=== PATIENT | female | born 1935 | race African-American/Black ===

== ENCOUNTER 2020-08-06 23:03 | Inpatient (IN) | payer MEDICARE, BC ==
[~2020-08-06] VITALS: Ht 180.3 cm; Wt 88.9 kg
[2020-08-06 23:11] VITALS: BP 126/70
[2020-08-06] MEDS ORDERED: AZATHIOPRINE5 GM MC (23:19)
[2020-08-06] MEDS ORDERED: ATORVASTATIN CA20 MG ORAL (23:19)
--- NOTE | 2020-08-06 23:20 | Emergency Room Report ---
History of Present Illness General Chief Complaint: Syncope Source: Patient, EMS Present Illness HPI Disclaimer: Please note that this report is being documented using DRAGON technology. This can lead to erroneous entry secondary to incorrect interpretation by the dictating instrument. HPI: 84-year-old female history of multiple sclerosis presents from [facility] facility for evaluation of syncopal episode. Patient was using the bathroom with attendant near her when she had a witnessed brief syncopal episode. It appears this occurred while the patient was getting up from a seated position. She quickly regained consciousness. There is no head injury; she was caught by the attendant. She was noted to be slightly hypotensive by EMS and was given 250 cc bolus. Blood pressures improved. Patient was complaining of lightheadedness but denied chest pain, palpitations, shortness of breath, headache, vertiginous symptoms, nausea, vomiting. Otherwise has been in her usual state of health. Eating and drinking at baseline. No changes in her medication reported. No prior history of syncope. PMH: Multiple sclerosis, hypertension, hyperlipidemia PSH: Reviewed Allergies: Enalapril, Social Hx: Denies drug or alcohol use Allergies: Coded Allergies: ENALAPRIL (Verified Allergy, Unknown, 08/06/20) Beebe (Verified Allergy, Unknown, 08/06/20) PAPAYA (Verified Allergy, Unknown, 08/06/20) Uncoded Allergies: OXYBUTIRIN (Allergy, Unknown, 08/06/20) COVID-19 Screening Contact w/high risk pt: No Experienced COVID-19 symptoms?: No COVID-19 Testing performed YARN COMBER: Yes COVID-19 Screening: Negative COVID-19 COVID-19 Testing Source: [facility] Nursing Documentation-PMH Hx Hypertension: Yes - mixed hyperlipidemia Hx Neurological Problems: Yes - MCI, OA Hx Cerebrovascular Accident: Yes - MS Review of Systems All Other Systems: negative except mentioned in HPI Physical Exam Vital Signs Date Time Temp Pulse Resp B/P (MAP) Pulse Ox O2 Delivery O2 Flow Rate FiO2 08/06/20 22:56 97.9 76 18 126/70 (88) 98 Room Air General: Awake and alert, no acute distress HEENT: NC/AT. EOMI. Cardiovascular: RRR. S1 and S2 normal. No murmur appreciated Resp: Normal work of breathing. No cough, wheezing or crackles appreciated Abdomen: Abdomen is soft, nondistended. Nontender Skin: Intact. No abrasions, laceration or rash over the exposed skin MSK: Normal tone and bulk. Moving all extremities. No obvious deformity. Neuro: Awake and alert. Mentating appropriately. Medical Decision Making Diagnostic Impression: Primary Impression: Syncope Additional Impression: Orthostatic hypotension ER Course Is an 84-year-old female with history of multiple sclerosis presenting for evaluation of syncopal episode while using the bathroom at [facility]. Differential includes not limited to vasovagal syncope, orthostatic hypotension, medication side effect from antihypertensives, arrhythmia, e lectrolyte abnormality, dehydration, ACS among others. Noted to be hypotensive by EMS on their arrival but improved with 250 cc bolus prior to arrival. She arrives with stable vital signs and complaints of mild lightheadedness. No reports of trauma and she has no external signs of trauma. She denies any other discomfort at this time. EKG shows sinus rhythm with normal intervals, no ischemic changes. No acute findings on chest x-ray. Labs have returned within normal limits. Orthostatic vital signs performed however the patient became lightheaded and nauseated while rising from a seated position indicating a positive finding. She will continue IV fluids and be admitted. Dr. Munguia is the assigned hospitalist for [facility] and has accepted the patient to his service. Will admit to telemetry. She is in stable condition. Laboratory Tests Test 08/06/20 23:05 08/06/20 23:10 08/06/20 23:15 Sodium Level 140 MMOL/L (136-145) Potassium Level 3.5 MMOL/L (3.5-5.1) Chloride Level 104 MMOL/L (98-107) Carbon Dioxide Level 24 MMOL/L (21-32) Anion Gap 12 mmol/L (5-15) Blood Urea Nitrogen 14 mg/dL (7-18) Creatinine 1.2 MG/DL (0.55-1.30) Estimated Glomerular Filtration Rate 52.1 mL/min (>60) Glucose Level 164 MG/DL (74-106) H Calcium Level 8.6 MG/DL (8.5-10.1) Total Bilirubin 0.6 MG/DL (0.2-1.0) Aspartate Amino Transferase (AST) 14 U/L (15-37) L Alanine Aminotransferase (ALT) 11 U/L (12-78) L Alkaline Phosphatase 96 U/L (46-116) Total Protein 6.5 G/DL (6.4-8.2) Albumin 3.5 G/DL (3.4-5.0) Globulin 3.0 g/dL Albumin/Globulin Ratio 1.2 (1.0-2.7) White Blood Count 14.6 K/UL (4.8-10.8) H Red Blood Count 4.35 M/UL (4.20-5.40) Hemoglobin 12.9 G/DL (12.0-16.0) Hematocrit 39.7 % (37.0-47.0) Mean Corpuscular Volume 91 FL (80-99) Mean Corpuscular Hemoglobin 29.6 PG (27.0-31.0) Mean Corpuscular Hemoglobin Concent 32.4 G/DL (32.0-36.0) Red Cell Distribution Width 13.1 % (11.6-14.8) Platelet Count 229 K/UL (150-450) Mean Platelet Volume 6.6 FL (6.5-10.1) Neutrophils (%) (Auto) 81.5 % (45.0-75.0) H Lymphocytes (%) (Auto) 9.7 % (20.0-45.0) L Monocytes (%) (Auto) 7.8 % (1.0-10.0) Eosinophils (%) (Auto) 0.4 % (0.0-3.0) Basophils (%) (Auto) 0.6 % (0.0-2.0) Phosphorus Level 3.8 MG/DL (2.5-4.9) Magnesium Level 2.0 MG/DL (1.8-2.4) Troponin I 0.000 ng/mL (0.000-0.056) EKG Diagnostic Results Troponin ordered: Yes When was troponin ordered?: Aug 06, 2020 EKG Time: 22:57 Rate: normal Rhythm: NSR ST Segments: no acute changes Other Impression Sinus rhythm, normal axis, normal intervals, QTC [address] segment changes. Rhythm Strip Diag. Results Rhythm Strip Time: 22:57 EP Interpretation: yes Rate: 70s Rhythm: NSR, no PVC's, no ectopy Chest X-Ray Diagnostic Results Chest X-Ray Diagnostic Results : Chest X-Ray Ordered: Yes # of Views/Limited/Complete: 1 View Indication: Other - Syncope EP Interpretation: Yes Interpretation: no consolidation, no effusion, no pneumothorax Impression: No acute disease Electronically Signed by: Electronically signed by Dr. Aristeo Horvath MD Last Vital Signs Date Time Temp Pulse Resp B/P (MAP) Pulse Ox O2 Delivery O2 Flow Rate FiO2 08/06/20 23:11 97.9 78 18 126/70 98 Room Air Disposition: ADMITTED INPATIENT Condition: Stable Aristeo Horvath MD Aug 06, 2020 23:20
[2020-08-06 23:30] LABS: BASOPHILS % (AUTO) 0.6 % (0.0-2.0); EOSINOPHILS % (AUTO) 0.4 % (0.0-3.0); HEMATOCRIT 39.7 % (37.0-47.0); HEMOGLOBIN 12.9 G/DL (12.0-16.0); LYMPHOCYTES % (AUTO) 9.7 % (20.0-45.0); MEAN CORPUSCULAR VOLUME 91 FL (80-99); MONOCYTES % (AUTO) 7.8 % (1.0-10.0); NEUTROPHILS % (AUTO) 81.5 % (45.0-75.0); PLATELET COUNT 229 K/UL (150-450); RED BLOOD COUNT 4.35 M/UL (4.20-5.40); RED CELL DISTRIBUTION WIDTH 13.1 % (11.6-14.8); WHITE BLOOD COUNT 14.6 K/UL (4.8-10.8)
[2020-08-06 23:33] VITALS: BP_SYST 113; BP_SYST 117; BP_DIAS 59; BP_DIAS 63
[2020-08-06] MEDS ORDERED: ACETAMINOP160 MG/51 ORAL (23:37)
[2020-08-06] MEDS ORDERED: MIRALAX17 G2 ORAL (23:37)
[2020-08-06] MEDS ORDERED: VITAMIN B-12500 MCG ORAL (23:37)
[2020-08-06] MEDS ORDERED: ADALAT20 MG ORAL (23:37)
[2020-08-06] MEDS ORDERED: POLYETHYLENE GL17 GM ORAL (23:37)
[2020-08-06] MEDS ORDERED: TRAMADOL HCL50 MG ORAL (23:37)
[2020-08-06] MEDS ORDERED: TRIAMCINOLONE A15 G2 TP (23:37)
[2020-08-06] MEDS ORDERED: DOCUSATE SODIU100 MG ORAL (23:37)
[2020-08-06] MEDS ORDERED: UBIQUINOL100 MG PO (23:37)
[2020-08-06] MEDS ORDERED: CERAVE DAILY M355 ML TP (23:37)
[2020-08-06] MEDS ORDERED: DONEPEZIL HCL10 M2 ORAL (23:37)
[2020-08-06] MEDS ORDERED: EPINEPHRINE IJ (23:37)
[2020-08-06] MEDS ORDERED: MULTIVITAMINS1 EAC8 ORAL (23:37)
[2020-08-06] MEDS ORDERED: FUROSEMIDE20 M1 ORAL (23:37)
[2020-08-06] MEDS ORDERED: VITAMIN D325 MC1 PO (23:37)
[2020-08-06] MEDS ORDERED: BISACODYL5 MG ORAL (23:37)
[2020-08-06 23:49] LABS: CALCIUM 8.6 MG/DL (8.5-10.1); CREATININE 1.2 MG/DL (0.55-1.30); POTASSIUM 3.5 MMOL/L (3.5-5.1)
[2020-08-06 23:51] LABS: PHOSPHORUS 3.8 MG/DL (2.5-4.9)
[2020-08-06 23:54] LABS: ALBUMIN 3.5 G/DL (3.4-5.0); ALBUMIN/GLOBULIN RATIO 1.2 (1.0-2.7); BILIRUBIN,TOTAL 0.6 MG/DL (0.2-1.0)
[2020-08-07] VITALS (8 sets, daily range): BP systolic 120–149; BP diastolic 66–78
[2020-08-07] MEDS ORDERED: traMADol 50mg tab ORAL PRN (00:45)
[2020-08-07] MEDS ORDERED: Bisacodyl EC 5mg tab ORAL PRN (00:45)
[2020-08-07] MEDS ORDERED: HydrALAZINE 25mg tab ORAL PRN (00:45)
[2020-08-07] MEDS: D5 1/2NS w/KCl 20mEq 1,000 ML IV SCH ×2 (02:32→20:45)
[2020-08-07 07:33] LABS: BASOPHILS % (AUTO) 0.3 % (0.0-2.0); EOSINOPHILS % (AUTO) 0.1 % (0.0-3.0); HEMOGLOBIN 12.8 G/DL (12.0-16.0); LYMPHOCYTES % (AUTO) 8.5 % (20.0-45.0); MEAN CORPUSCULAR VOLUME 88 FL (80-99); MONOCYTES % (AUTO) 7.7 % (1.0-10.0); NEUTROPHILS % (AUTO) 83.4 % (45.0-75.0); PLATELET COUNT 228 K/UL (150-450); RED BLOOD COUNT 4.41 M/UL (4.20-5.40); RED CELL DISTRIBUTION WIDTH 12.8 % (11.6-14.8); WHITE BLOOD COUNT 12.2 K/UL (4.8-10.8)
[2020-08-07 08:02] LABS: ALANINE AMINOTRANSFERASE 15 U/L (12-78); ALBUMIN 3.4 G/DL (3.4-5.0); ALBUMIN/GLOBULIN RATIO 0.9 (1.0-2.7); ALKALINE PHOSPHATASE 91 U/L (46-116); ANION GAP 9 mmol/L (5-15); ASPARTATE AMINO TRANSFERASE 15 U/L (15-37); BILIRUBIN,TOTAL 0.7 MG/DL (0.2-1.0); BLOOD UREA NITROGEN 12 mg/dL (7-18); CALCIUM 8.2 MG/DL (8.5-10.1); CARBON DIOXIDE 26 MMOL/L (21-32); CHLORIDE 107 MMOL/L (98-107); CHOLESTEROL 166 MG/DL (< 200); CREATININE 0.9 MG/DL (0.55-1.30); HDL CHOLESTEROL 65 MG/DL (40-60); PHOSPHORUS 3.7 MG/DL (2.5-4.9); SODIUM 142 MMOL/L (136-145); TRIGLYCERIDES 33 MG/DL (30-150)
--- NOTE | 2020-08-07 08:46 | Diagnostic Imaging Report ---
EXAM: US Duplex Bilateral Extracranial Arteries CLINICAL HISTORY: SYNCOPE TECHNIQUE: Real-time duplex ultrasound scan of the extracranial arteries integrating B-mode two-dimensional vascular structure, Doppler spectral analysis and color flow Doppler imaging. COMPARISON: No relevant prior studies available. FINDINGS: Right common carotid artery: Calcific plaque in the right common carotid artery bulb. Right CCA peak systolic velocity proximal 58 cm/s, mid 56 cm/s, distal 54 cm/s. No occlusion or significant stenosis on color flow and spectral Doppler imaging. Right internal carotid artery: Calcific plaque in the proximal right ICA. Right ICA peak systolic velocity proximal 19 cm/s, mid 8.7 cm/s, distal 45 and repeat with 103 cm/s. Right external carotid artery: Unremarkable. No occlusion or significant stenosis on color flow and spectral Doppler imaging. Right vertebral artery: Unremarkable. Antegrade flow. Right ICA/CCA ratio: Right ICA/CCA ratio 1.76. Left common carotid artery: Left CCA peak systolic velocity proximal 70 cm/s, mid 64 cm/s, distal 47 cm/s. No occlusion or significant stenosis on color flow and spectral Doppler imaging. Left internal carotid artery: Left ICA peak systolic velocity proximal 49 cm/s, mid 65 cm/s, distal 60 cm/s. No occlusion or significant stenosis on color flow and spectral Doppler imaging. Left external carotid artery: Unremarkable. No occlusion or significant stenosis on color flow and spectral Doppler imaging. Left vertebral artery: Unremarkable. Antegrade flow. Left ICA/CCA ratio: Left ICA/CCA ratio 1.38 Lymph nodes: Unremarkable. No lymphadenopathy. CAROTID STENOSIS REFERENCE USING SRU CRITERIA: Mild - <50% stenosis. ICA PSV is less than 125 cm/second and plaque or intimal thickening is visible. Moderate - 50-69% stenosis. ICA PSV is 125 to 230 cm/second and plaque is visible. Severe - 70-94% stenosis. ICA PSV is more than 230 cm/second and visible plaque with lumen narrowing is seen. Near occlusion - 95-99% stenosis. ICA PSV is variable and significant plaque with luminal narrowing is seen. Occluded - 100% stenosis. No flow identified. IMPRESSION: No hemodynamically significant stenosis on either side. There is somewhat low velocities within the right internal carotid artery, indeterminate etiology, may be technical, no significant plaque or high- grade stenosis visualized on color Doppler.
[2020-08-07] MEDS: Miralax 17gm pkt ORAL SCH (09:24)
[2020-08-07] MEDS: Aspirin Baby 81mg ORAL SCH (09:24)
[2020-08-07] MEDS: Docusate 100mg cap ORAL SCH ×2 (09:24→18:03)
[2020-08-07] MEDS: Heparin 5000 units/ml inj SUBQ SCH ×2 (09:24→20:50)
--- NOTE | 2020-08-07 12:14 | History & Physical ---
History and Physical History & Physicial # [id number] I spent an additional 36 minutes on review of medical records including prior hospital records,consult notes, progress notes, procedures ,imaging labs, hemo dynamics, and other clinical documentation. Over 35 min Johan Dubois MD Aug 07, 2020 12:14
[2020-08-07 13:07] LABS: APPEARANCE,URINE CLEAR; BILIRUBIN, URINE NEGATIVE (NEGATIVE); COLOR,URINE PALE YELLOW; GLUCOSE, URINE (UA) NEGATIVE (NEGATIVE); KETONES,URINE NEGATIVE (NEGATIVE); LEUKOCYTE ESTERASE ,URINE 2+ (NEGATIVE); NITRITE,URINE NEGATIVE (NEGATIVE); PH,URINE 6 (4.5-8.0); PROTEIN,URINE 2+ (NEGATIVE); UROBILINOGEN,URINE NORMAL MG/DL (0.0-1.0)
--- NOTE | 2020-08-07 15:00 | History and Physical Report ---
DATE OF ADMISSION: 08/07/2020 REASON FOR ADMISSION: I am seeing the patient who was referred to me from the emergency room where she was presented for syncope. HISTORY OF PRESENT ILLNESS: The patient is an 84-year-old female with past history of multiple sclerosis. The patient lives in a [facility] and she resides in [facility]. The patient came into emergency room for syncopal episode and was referred to me after evaluation in the emergency room for admission and further observation. Apparently the patient was using the bathroom with attendant near her when she had a witnessed brief syncopal episode. It appears that this occurred while the patient was getting up from a seated position. She however regained consciousness quickly. No head injury reported by the attendant. The patient was slightly hypotensive when EMS arrived there. The patient was given 250 mL bolus which blood pressure improved. The patient complained of lightheadedness however denying chest pain, palpitations, shortness of breath, nausea, vomiting. When the patient was screened for COVID, it appeared that the patient had previous COVID test which was negative in the [facility] facility. PAST MEDICAL HISTORY: Multiple sclerosis, hyperlipemia, hypertension. ALLERGIES: Enalapril and oxybutynin, also to jaison and papaya. SOCIAL HISTORY: No drug or alcohol abuse. REVIEW OF SYSTEMS: This morning, the patient denies any headache, visual disturbances, chest pain, shortness of breath, or palpitations. PHYSICAL EXAMINATION: VITAL SIGNS: Blood pressure is 137/66, temperature 97.9, pulse rate 67, and respiratory rate 16 to 20 variable. GENERAL: The patient awake, answers the questions properly. HEENT: Head is normocephalic. Sclerae not icteric. NECK: Supple. HEART: Regular. ABDOMEN: Soft, nondistended. SKIN: Intact. LUNGS: No wheeze, no rhonchi, and no rales. ABDOMEN: Soft. No organomegaly. NEUROLOGIC: Awake, mentating appropriately, and moves her extremities. LABORATORY DATA: Basically unremarkable with normal electrolytes and normal renal function. Urinalysis and urine culture is still pending. IMPRESSION: This 84-year-old female had a syncopal episode. Possibilities are orthostatic hypotension. The patient has mild leukocytosis however no UA and culture is available yet. Her other conditions include allergy to enalapril and oxybutynin, hypertension, and multiple sclerosis. 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 Meanwhile, I have held the Aricept and also Lipitor for the patient. I will continue the patient on stool softeners, slow hydration. Monitor electrolytes. I will get the neurological evaluation. According to how the patient's condition evolves, we will make the proper changes in our future management. Johan Dubois M.D. DR: Eladio JOB#: [id number] CC:
--- NOTE | 2020-08-07 16:33 | Consultation ---
Consult Note Consult Note [facility] NEUROLOGY CONSULTATION August 07, [address] Dubois, I evaluated Ms Nanny Putnam and my assessment is as follows. HISTORY: Ms Nanny Putnam is an 84-year-old, right-handed, black lady, who does have a past history of multiple sclerosis for numerous years, high blood pressure, dyslipidemia, and dementia. She lives at [facility]. She was functioning relatively well until the morning of 08/06/2020 when she had gone to the bathroom with an attendant and when she got off the commode and stood up she apparently passed out for a brief period of time. As soon as she was on the floor she rapidly regained consciousness. There was no head injury or injury to any other parts of her body. The paramedics were called and and when they got to her her blood pressure was low. She was given a 250 mL bolus of normal saline and rapidly improved. She was then transported to [facility] and has since been admitted. She is unable to remember the episode in detail but says that she did feel lightheaded before she passed out and she was out for very short time. She denies having any prior episodes of similar symptoms. With regards to her multiple sclerosis, she tells me that she was diagnosed with the disease numerous years ago. The problem that the multiple sclerosis is because is weakness in both her legs as a result of which walking is exceedingly difficult and she has to use a walker to take a few steps. She does also have problems with controlling her bowel and bladder. She is unable to tell me if she is taking any disease modifying agent for her multiple sclerosis. With regards to her memory problem she says that she has had a memory problem for the last few years which is getting progressively worse. PAST HISTORY: Multiple sclerosis, high blood pressure, dyslipidemia, and dementia. FAMILY HISTORY: Her brother and sister have high blood pressure. Her mother of old age in her late 80s. Her father of old age in his early 90s. PERSONAL HISTORY: Home: She lives in a longterm. 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 Habits: She used to smoke in the past but stopped smoking numerous years ago. She used to have rare alcoholic drink in the past. She has used weed in the past. PRESENT MEDICATIONS: It is not clear as to what she was taking it at longterm. ALLERGIES: Enalapril, oxybutynin NEUROLOGIC REVIEW OF SYSTEMS: Benign. PHYSICAL EXAMINATION: GENERAL: She is a well-developed, well-nourished, pleasant, black lady, lying in bed, in no acute distress. VITAL SIGNS: Pulse: 75/minute and regular. Blood Pressure: 142/72 mm of Hg. Respirations: 20/minute Temperature 98.1 F HEAD: Normocephalic and atraumatic. NECK: No neck rigidity was observed. EENT: Benign. SPINE: Cervical, thoracic and lumbosacral spine revealed no tenderness or paraspinal muscle spasm and normal range of motion. EXTREMITIES: Benign. NEUROLOGIC EXAMINATION: MENTAL STATUS EXAMINATION: She was awake and alert. She was oriented to self in the year 2019. She did not know the date month or where she was located. She was able to recall 3/3 words immediately but could only remember 2/3 after 1 minute and 3 minutes even on the second trial. She was able to remember presidents Trump through Kemp Alan with hints. Her mathematical skills were minimally impaired. Her visuospatial function was relatively good. SPEECH: No dysarthria was noted. LANGUAGE: He had an anomia for low-frequency words. CRANIAL NERVE EXAMINATION: II: The visual marrero were intact to confrontation testing. III, IV, : External ocular movements were full and pupils 3 mm in diameter equal, round, regular and reactive to light. V: The facial sensations were normal, and the temporales, masseters and pterygoids functioned normally. VII: The facial expressions were normal and no facial asymmetry was seen. VIII: The patient was able to hear well bilaterally and had no nystagmus. IX: The palate moved symmetrically on phonation. X: There was no hoarseness of voice. XI: The sternocleidomastoids and trapezii functioned normally. XII: The tongue was in the midline without any fasciculations or atrophy. MOTOR SYSTEM: The tone was creased in both lower extremities with spasticity. Examination of muscle mass revealed no focal wasting. Examination of power revealed G 5/5 power in both upper extremities. In both lower extremities she had: G 2/4 in the iliopsoas G 5-/5 in the quadriceps G 4/5 in the hamstrings G 4+/5 in the ankles and toes. SENSORY EXAMINATION: Sensory examination was inaccurate because of varying responses. COORDINATION: [id number] was performed well. She was unable to perform [id number] testing. REFLEXES: 2+ and bilaterally symmetric at the biceps, triceps, and brachioradialis. 2++ at both knees. 0 at both ankles. The plantar responses were equivocal bilaterally. STANCE: Deferred. GAIT: Deferred. ABNORMAL MOVEMENTS: None DIAGNOSTIC IMPRESSION: 1. Ms Nanny Putnam is an 84-year-old, right-handed, black lady, who does have a past history of multiple sclerosis for numerous years, high blood pressure, dyslipidemia, and dementia. She lives at [facility]. 2. On the morning of 08/06/2020 when she got up from a sitting position to the standing position of the commode she felt lightheaded and passed out for a short period of time. When her blood pressure was measured it was low. She was brought to the [facility] emergency room by the paramedics and has since been admitted. 3. She feels well at this time. She has had no further episodes of lightheadedness or passing out. She however has not been out of bed. 4. On neurological examination, at this time, she is disoriented to the date month and name of the hospital. She has significant problems with recent and remote memory. She also has problems with higher cognitive function. She has a spastic paraparesis of significant degree. 5. Laboratory data obtained thus far have revealed a WBC count elevated at 14,600, blood sugar elevated at 131, normal vitamin B12 level folate level TSH and a.m. cortisol. The urinalysis revealed 10-15 white blood cells and 2-4 red blood cells with 2+ leukocyte esterase. 6. Patient history, neurological examination, and laboratory data, most consistent with a syncopal episode most probably related to volume depletion and a mild urinary tract infection. 7. She does have significant cognitive problems which are most probably related to a primary degenerative dementia. 8. She does have a history of multiple sclerosis which in her case as caused a significant paraparesis. It is unclear if she is taking the disease modifying agent for it or not. RECOMMENDATIONS: 1. Agree with management thus far. 2. If the patient is on a disease modifying agent for her multiple sclerosis it should be continued. 3. Continue treatment for cognitive dysfunction. 4. Get patient out of bed in chair for all meals to prevent deconditioning. 5. Mobilize the patient with physical therapy. 6. Exclude cardiac arrhythmia as a cause for syncope. Thank you for entrusting me to take care of Ms. Putnam's Neurologic needs. Sincerely, Madhu Larsen M.D., M.S.P.H. Neurologist & Clinical Neurophysiologist Madhu Larsen MD Aug 07, 2020 16:33
--- NOTE | 2020-08-07 16:42 | Diagnostic Imaging Report ---
Indication: Chest pain Technique: One view of the chest Comparison: none Findings: There is linear atelectasis at both lung bases. The remainder the lungs and pleural spaces are clear. The heart size is normal Impression: Bilateral basilar atelectasis. No acute process otherwise
[2020-08-08] VITALS: BP 151/76
[2020-08-08 04:00] VITALS: BP 144/72
[2020-08-08 08:00] VITALS: BP 117/62
[2020-08-08] MEDS: Miralax 17gm pkt ORAL SCH (09:00)
[2020-08-08] MEDS: Docusate 100mg cap ORAL SCH ×2 (09:09→17:13)
[2020-08-08] MEDS: Heparin 5000 units/ml inj SUBQ SCH ×2 (09:09→21:40)
[2020-08-08] MEDS: Aspirin Baby 81mg ORAL SCH (09:09)
--- NOTE | 2020-08-08 11:03 | General Progress Note ---
Subjective Date patient seen: Aug 08, 2020 ROS Limited/Unobtainable: No Constitutional: Reports: other - no dizziness no chest pain Allergies: Coded Allergies: ENALAPRIL (Verified Allergy, Unknown, 08/06/20) German (Verified Allergy, Unknown, 08/06/20) PAPAYA (Verified Allergy, Unknown, 08/06/20) Uncoded Allergies: OXYBUTIRIN (Allergy, Unknown, 08/06/20) Objective Last 24 Hour Vital Signs Date Time Temp Pulse Resp B/P (MAP) Pulse Ox O2 Delivery O2 Flow Rate FiO2 08/08/20 09:00 Room Air 08/08/20 08:00 97.7 83 20 117/62 (80) 96 08/08/20 04:00 69 08/08/20 04:00 97.9 75 17 144/72 (96) 97 08/08/20 00:00 87 08/08/20 00:00 98.2 83 18 151/76 (101) 98 08/07/20 21:00 Room Air 08/07/20 20:00 69 08/07/20 20:00 98.1 74 18 149/75 (99) 98 08/07/20 16:00 98.2 75 20 148/76 (100) 99 08/07/20 16:00 71 08/07/20 14:54 71 08/07/20 12:00 73 08/07/20 12:00 98.1 75 20 142/72 (95) 99 Intake and Output 08/07/20 08/08/20 19:00 07:00 Intake Total 200 ml 400 ml Output Total 400 ml Balance 200 ml 0 ml Intake Oral 200 ml 400 ml Output Urine Total 400 ml # Voids 3 2 Current Medications Medications (Trade) Dose Ordered Sig/Corbin Route PRN Reason Start Time Stop Time Status Last Admin Dose Admin Acetaminophen (Tylenol) 325 mg Q6H PRN ORAL Mild Pain (Pain Scale 1-3) 08/07/20 00:45 09/06/20 00:44 Aspirin (ASA) 81 mg DAILY ORAL 08/07/20 09:00 09/21/20 08:59 08/08/20 09:09 Bisacodyl (Dulcolax) 10 mg DAILY PRN ORAL constipation 08/07/20 00:45 11/05/20 00:44 Ceftriaxone Sodium 1 gm/ Dextrose 55 ml @ 110 mls/hr Q24H IVPB 08/08/20 11:00 08/15/20 10:59 UNV Dextrose/ Electrolytes 1,000 ml @ 50 mls/hr Q20H IV 08/07/20 00:45 09/06/20 00:44 08/07/20 20:45 Docusate Sodium (Colace) 100 mg TWICE A DAY ORAL 08/07/20 09:00 09/06/20 08:59 08/08/20 09:09 Heparin Sodium (Porcine) (Heparin 5000 units/ml) 5,000 units EVERY 12 HOURS SUBQ 08/07/20 09:00 09/21/20 08:59 08/08/20 09:09 Hydralazine HCl (Apresoline) 25 mg Q4H PRN ORAL bp over 160 syst 08/07/20 00:45 11/05/20 00:44 Ondansetron HCl (Zofran) 4 mg Q6H PRN IVP Nausea & Vomiting 08/07/20 01:00 09/06/20 00:59 Pantoprazole (Protonix) 40 mg EVERY 12 HOURS ORAL 08/07/20 09:00 09/06/20 08:59 08/08/20 09:09 Polyethylene Glycol (Miralax) 17 gm DAILY ORAL 08/07/20 09:00 09/06/20 08:59 08/07/20 09:24 Temazepam (RestoriL) 7.5 mg HSPRN PRN ORAL Insomnia 08/07/20 01:00 08/14/20 00:59 Tramadol HCl (Ultram) 25 mg QID PRN ORAL For Pain scale 4 and above 08/07/20 00:45 08/14/20 00:44 Laboratory Tests 08/07/20 12:54: Urine Color Pale yellow, Urine Appearance Clear, Urine pH 6, Urine Specific Newton 1.020, Urine Protein 2+H, Urine Glucose (UA) Negative, Urine Ketones Negative, Urine Blood 1+H, Urine Nitrite Negative, Urine Bilirubin Negative, Urine Urobilinogen Normal, Urine Leukocyte Esterase 2+H, Urine RBC 2-4H, Urine WBC 10-15H, Urine Squamous Epithelial Cells ModerateH, Urine Bacteria Few 08/08/20 04:05: Troponin I 0.000 Height (Feet): 5 Height (Inches): 11.00 Weight (Pounds): 180 General Appearance: no apparent distress Cardiovascular: normal rate - sinus Respiratory/Chest: lungs clear Abdomen: soft Neurologic: other - paraparetic Assessment/Plan Problem List: (1) Syncope ICD Codes: R55 - Syncope and collapse SNOMED: 655670694 (2) UTI (urinary tract infection) ICD Codes: N39.0 - Urinary tract infection, site not specified SNOMED: 41913819 (3) Orthostatic hypotension ICD Codes: I95.1 - Orthostatic hypotension SNOMED: 99520421 (4) Multiple sclerosis ICD Codes: G35 - Multiple sclerosis SNOMED: 66755540 Status Narrative This 84-year-old female had a syncopal episode. Possibilities are orthostatic hypotension. The patient has mild leukocytosis however no UA and culture is available yet. Her other conditions include allergy to enalapril and oxybutynin, hypertension, and multiple sclerosis. Assessment/Plan: Patient is stable. Will start ceftriaxone for UTI. Continue to hydrate. Discussed with Dr. Lowry. Will aim to discharge tomorrow. Johan Dubois MD Aug 08, 2020 11:02
--- NOTE | 2020-08-08 11:12 | Neurology Progress Note ---
Interim History Interim History Interim History Ms Nanny Putnam is an 84-year-old, right-handed, black lady, who does have a past history of multiple sclerosis for numerous years, high blood pressure, dyslipidemia, and dementia. She lives at [facility]. On the morning of 08/06/2020 when she got up from a sitting position to the standing position of the commode she felt lightheaded and passed out for a short period of time. When her blood pressure was measured it was low. She was brought to the [facility] emergency room by the paramedics and has since been admitted. When I saw her on 08/07/2020 she felt well. She had no further episodes of lightheadedness or passing out. She however had not been out of bed. She feels very well today. She denies any lightheadedness, dizziness, or any further episodes of loss of consciousness. She continues to be forgetful. She denies any new neurological symptoms. Review of Systems Neuro Review of Systems Benign. Objective Physical Exam Last Vital Signs Date Time Temp Pulse Resp B/P (MAP) Pulse Ox O2 Delivery O2 Flow Rate FiO2 08/08/20 09:00 Room Air 08/08/20 08:00 97.7 83 20 117/62 (80) 96 Laboratory Tests Test 08/07/20 12:54 08/08/20 04:05 Urine Color Pale yellow Urine Appearance Clear Urine pH 6 (4.5-8.0) Urine Specific [place] 1.020 (1.005-1.035) Urine Protein 2+ (NEGATIVE) H Urine Glucose (UA) Negative (NEGATIVE) Urine Ketones Negative (NEGATIVE) Urine Blood 1+ (NEGATIVE) H Urine Nitrite Negative (NEGATIVE) Urine Bilirubin Negative (NEGATIVE) Urine Urobilinogen Normal MG/DL (0.0-1.0) Urine Leukocyte Esterase 2+ (NEGATIVE) H Urine RBC 2-4 /HPF (0 - 2) H Urine WBC 10-15 /HPF (0 - 2) H Urine Squamous Epithelial Cells Moderate /LPF (NONE/OCC) H Urine Bacteria Few /HPF (NONE) Troponin I 0.000 ng/mL (0.000-0.056) Neurologic Exam Objective PHYSICAL EXAMINATION: GENERAL: She is a well-developed, well-nourished, pleasant, black lady, lying in bed, in no acute distress. HEAD: Normocephalic and atraumatic. NECK: No neck rigidity was observed. EENT: Benign. SPINE: Cervical, thoracic and lumbosacral spine revealed no tenderness or paraspinal muscle spasm and normal range of motion. EXTREMITIES: Benign. NEUROLOGIC EXAMINATION: MENTAL STATUS EXAMINATION: She was awake and alert. She was oriented to self and July. She did not know the date, year or where she was located. She was able to recall 3/3 words immediately but could only remember 2/3 after 1 minute and 3 minutes even on the second trial. She was able to remember presidents Trump through Kemp Alan with hints. Her mathematical skills were minimally impaired. Her visuospatial function was relatively good. SPEECH: No dysarthria was noted. LANGUAGE: He had an anomia for low-frequency words. CRANIAL NERVE EXAMINATION: II: The visual marrero were intact to confrontation testing. III, IV, : External ocular movements were full and pupils 3 mm in diameter equal, round, regular and reactive to light. V: The facial sensations were normal, and the temporales, masseters and pterygoids functioned normally. VII: The facial expressions were normal and no facial asymmetry was seen. VIII: The patient was able to hear well bilaterally and had no nystagmus. IX: The palate moved symmetrically on phonation. X: There was no hoarseness of voice. XI: The sternocleidomastoids and trapezii functioned normally. XII: The tongue was in the midline without any fasciculations or atrophy. MOTOR SYSTEM: The tone was creased in both lower extremities with spasticity. Examination of muscle mass revealed no focal wasting. Examination of power revealed G 5/5 power in both upper extremities. In both lower extremities she had: G 2/4 in the iliopsoas G 5-/5 in the quadriceps G 4/5 in the hamstrings G 4+/5 in the ankles and toes. SENSORY EXAMINATION: Sensory examination was inaccurate because of varying responses. COORDINATION: [id number] was performed well. She was unable to perform [id number] testing. REFLEXES: 2+ and bilaterally symmetric at the biceps, triceps, and brachioradialis. 2++ at both knees. 0 at both ankles. The plantar responses were equivocal bilaterally. STANCE: Deferred. GAIT: Deferred. ABNORMAL MOVEMENTS: None Impression/Recommendations Diagnostic Impression DIAGNOSTIC IMPRESSION: 1. Ms Nanny Putnam is an 84-year-old, right-handed, black lady, who does have a past history of multiple sclerosis for numerous years, high blood pressure, dyslipidemia, and dementia. She lives at [facility]. 2. On the morning of 08/06/2020 when she got up from a sitting position to the standing position of the commode she felt lightheaded and passed out for a short period of time. When her blood pressure was measured it was low. She was brought to the [facility] emergency room by the paramedics and has since been admitted. 3. When I saw her on 08/07/2020 she felt well. She had no further episodes of lightheadedness or passing out. She however had not been out of bed. 4. She feels very well today. She denies any lightheadedness, dizziness, or any further episodes of loss of consciousness. She continues to be forgetful. She denies any new neurological symptoms. 5. On neurological examination, at this time, she is disoriented to the date, year and name of the hospital. She has significant problems with recent and remote memory. She also has problems with higher cognitive function. She has a spastic paraparesis of significant degree. 6. Laboratory data obtained thus far have revealed a WBC count elevated at 14,600, blood sugar elevated at 131, normal vitamin B12 level folate level TSH and a.m. cortisol. The urinalysis revealed 10-15 white blood cells and 2-4 red blood cells with 2+ leukocyte esterase. 7. Patient history, neurological examination, and laboratory data, most consistent with a syncopal episode most probably related to volume depletion and a mild urinary tract infection. 8. She does have significant cognitive problems which are most probably related to a primary degenerative dementia. 9. She does have a history of multiple sclerosis which in her case has caused a significant paraparesis. It is unclear if she is taking a disease modifying agent for it or not. Recommendations RECOMMENDATIONS: 1. Continue present management. 2. If the patient is on a disease modifying agent for her multiple sclerosis it should be continued. 3. Continue treatment for cognitive dysfunction. 4. Get patient out of bed in chair for all meals to prevent deconditioning. 5. Treatment of UTI as per Dr. Dubois. 6. Mobilize the patient with physical therapy. 7. Exclude cardiac arrhythmia as a cause for syncope. Madhu Larsen M.D., M.S.P.H. Neurologist & Clinical Neurophysiologist Madhu Larsen MD Aug 08, 2020 11:12
[2020-08-08 12:00] VITALS: BP 119/77
[2020-08-08] MEDS ORDERED: cefTRIAXone 1 GM in D5W 55 ML IVPB SCH (12:00)
[2020-08-08] MEDS: Donepezil 10mg tab ORAL SCH (12:04)
[2020-08-08 16:00] VITALS: BP 141/69
[2020-08-08] MEDS: D5 1/2NS w/KCl 20mEq 1,000 ML IV SCH (17:13)
[2020-08-08 20:00] VITALS: BP 159/75
[2020-08-09] VITALS: BP 152/83
[2020-08-09 04:00] VITALS: BP 154/74
[2020-08-09 08:00] VITALS: BP 153/78
[2020-08-09 08:08] LABS: BASOPHILS % (AUTO) 0.6 % (0.0-2.0); EOSINOPHILS % (AUTO) 2.2 % (0.0-3.0); HEMATOCRIT 37.8 % (37.0-47.0); HEMOGLOBIN 12.6 G/DL (12.0-16.0); LYMPHOCYTES % (AUTO) 15.9 % (20.0-45.0); MEAN CORPUSCULAR VOLUME 90 FL (80-99); MONOCYTES % (AUTO) 7.3 % (1.0-10.0); PLATELET COUNT 216 K/UL (150-450); RED CELL DISTRIBUTION WIDTH 13.1 % (11.6-14.8); WHITE BLOOD COUNT 8.1 K/UL (4.8-10.8)
[2020-08-09] MEDS: Aspirin Baby 81mg ORAL SCH (08:37)
[2020-08-09] MEDS: Donepezil 10mg tab ORAL SCH (08:37)
[2020-08-09] MEDS: Docusate 100mg cap ORAL SCH (08:38)
[2020-08-09] MEDS: Heparin 5000 units/ml inj SUBQ SCH (08:45)
[2020-08-09] MEDS ORDERED: Miralax 17gm pkt ORAL SCH (09:00)
[2020-08-09 09:38] LABS: ALBUMIN 3.1 G/DL (3.4-5.0); BILIRUBIN,TOTAL 0.6 MG/DL (0.2-1.0); CALCIUM 8.2 MG/DL (8.5-10.1); CREATININE 1.1 MG/DL (0.55-1.30); PHOSPHORUS 3.3 MG/DL (2.5-4.9); POTASSIUM 3.8 MMOL/L (3.5-5.1)
--- NOTE | 2020-08-09 10:15 | General Progress Note ---
Subjective ROS Limited/Unobtainable: No Constitutional: Reports: malaise Allergies: Coded Allergies: ENALAPRIL (Verified Allergy, Unknown, 08/06/20) German (Verified Allergy, Unknown, 08/06/20) PAPAYA (Verified Allergy, Unknown, 08/06/20) Uncoded Allergies: OXYBUTIRIN (Allergy, Unknown, 08/06/20) Objective Last 24 Hour Vital Signs Date Time Temp Pulse Resp B/P (MAP) Pulse Ox O2 Delivery O2 Flow Rate FiO2 08/09/20 09:00 Room Air 08/09/20 08:00 98.4 83 14 153/78 (103) 96 08/09/20 08:00 78 08/09/20 04:00 99.9 69 14 154/74 (100) 98 08/09/20 04:00 65 08/09/20 00:00 99.9 77 20 152/83 (106) 95 08/09/20 00:00 76 08/08/20 21:00 Room Air 08/08/20 20:00 99.7 77 20 159/75 (103) 98 08/08/20 20:00 74 08/08/20 16:00 97.6 85 20 141/69 (93) 98 08/08/20 16:00 77 08/08/20 12:00 75 08/08/20 12:00 97.7 75 20 119/77 (91) 97 Intake and Output 08/08/20 08/09/20 19:00 07:00 Intake Total 350 ml 290 ml Output Total 500 ml 2300 ml Balance -150 ml -2010 ml Intake Oral 350 ml 290 ml Output Urine Total 500 ml 2300 ml # Voids 2 3 Current Medications Medications (Trade) Dose Ordered Sig/Corbin Route PRN Reason Start Time Stop Time Status Last Admin Dose Admin Acetaminophen (Tylenol) 325 mg Q6H PRN ORAL Mild Pain (Pain Scale 1-3) 08/07/20 00:45 09/06/20 00:44 Aspirin (ASA) 81 mg DAILY ORAL 08/07/20 09:00 09/21/20 08:59 08/09/20 08:37 Bisacodyl (Dulcolax) 10 mg DAILY PRN ORAL constipation 08/07/20 00:45 11/05/20 00:44 Ceftriaxone Sodium 1 gm/ Dextrose 55 ml @ 110 mls/hr Q24H IVPB 08/08/20 12:00 08/15/20 11:59 08/08/20 12:05 Dextrose/ Electrolytes 1,000 ml @ 50 mls/hr Q20H IV 08/07/20 00:45 09/06/20 00:44 08/08/20 17:13 Docusate Sodium (Colace) 100 mg TWICE A DAY ORAL 08/07/20 09:00 09/06/20 08:59 08/09/20 08:38 Donepezil HCl (Aricept) 10 mg DAILY ORAL 08/08/20 11:30 09/07/20 11:29 08/09/20 08:37 Heparin Sodium (Porcine) (Heparin 5000 units/ml) 5,000 units EVERY 12 HOURS SUBQ 08/07/20 09:00 09/21/20 08:59 08/09/20 08:45 Hydralazine HCl (Apresoline) 25 mg Q4H PRN ORAL bp over 160 syst 08/07/20 00:45 11/05/20 00:44 Ondansetron HCl (Zofran) 4 mg Q6H PRN IVP Nausea & Vomiting 08/07/20 01:00 09/06/20 00:59 Pantoprazole (Protonix) 40 mg EVERY 12 HOURS ORAL 08/07/20 09:00 09/06/20 08:59 08/09/20 08:37 Polyethylene Glycol (Miralax) 17 gm DAILY ORAL 08/09/20 09:00 09/08/20 08:59 08/09/20 08:38 Temazepam (RestoriL) 7.5 mg HSPRN PRN ORAL Insomnia 08/07/20 01:00 08/14/20 00:59 Tramadol HCl (Ultram) 25 mg QID PRN ORAL For Pain scale 4 and above 08/07/20 00:45 08/14/20 00:44 Laboratory Tests 08/09/20 07:55: White Blood Count 8.1, Red Blood Count 4.20, Hemoglobin 12.6, Hematocrit 37.8, Mean Corpuscular Volume 90, Mean Corpuscular Hemoglobin 30.1, Mean Corpuscular Hemoglobin Concent 33.4, Red Cell Distribution Width 13.1, Platelet Count 216, Mean Platelet Volume 6.3L, Neutrophils (%) (Auto) 74.0, Lymphocytes (%) (Auto) 15.9L, Monocytes (%) (Auto) 7.3, Eosinophils (%) (Auto) 2.2, Basophils (%) (Auto) 0.6, Sodium Level 138, Potassium Level 3.8, Chloride Level 104, Carbon Dioxide Level 28, Anion Gap 6, Blood Urea Nitrogen 7, Creatinine 1.1, Estimat Glomerular Filtration Rate 57.7, Glucose Level 154H, Calcium Level 8.2L, Phosphorus Level 3.3, Magnesium Level 1.9, Total Bilirubin 0.6, Aspartate Amino Transf (AST/SGOT) 17, Alanine Aminotransferase (ALT/SGPT) 12, Alkaline Phospha tase 84, C-Reactive Protein, Quantitative 4.5H, Total Protein 6.2L, Albumin 3.1L , Globulin 3.1, Albumin/Globulin Ratio 1.0 Height (Feet): 5 Height (Inches): 11.00 Weight (Pounds): 180 General Appearance: no apparent distress Cardiovascular: normal rate Respiratory/Chest: lungs clear Abdomen: soft Assessment/Plan Problem List: (1) Syncope ICD Codes: R55 - Syncope and collapse SNOMED: 726365761 (2) UTI (urinary tract infection) ICD Codes: N39.0 - Urinary tract infection, site not specified SNOMED: 24475531 (3) Orthostatic hypotension ICD Codes: I95.1 - Orthostatic hypotension SNOMED: 57130456 (4) Multiple sclerosis ICD Codes: G35 - Multiple sclerosis SNOMED: 97023313 Assessment/Plan: August 09: Patient stable. Urine culture suggestive of mixed organisms. Leukocytosis resolved. Patient hydrated. Will discharge back to her primary residence in [facility]. I discussed the patient's condition yesterday evening with her daughter Eris. Patient is stable. Will start ceftriaxone for UTI. Continue to hydrate. Di scussed with Dr. Lowry. Will aim to discharge tomorrow. Johan Dubois MD Aug 09, 2020 10:15
[2020-08-09] MEDS ORDERED: PANTOPRAZOLE SO40 MG ORAL (10:20)
[2020-08-09] MEDS ORDERED: ASPIRIN81 MG ORAL (10:20)
--- NOTE | 2020-08-09 10:21 | Discharge Instructions ---
Discharge Instructions Discharge Instructions Follow up with: follow up with PMD Call MD/Return to Hospital if: fever, syncope, change in condition Diet: cardiac 2 GM Na, low fat Resume Normal Activity?: Yes Activity: other - PT eval Special Instructions routin skin care- fall percautions For Congestive Heart Failure Reminder Report to your physician any weight gain of 5 pounds or more in one week. Johan Dubois MD Aug 09, 2020 10:21
[2020-08-09] MEDS ORDERED: cefTRIAXone 1 GM in D5W 55 ML IVPB SCH (11:00)
[2020-08-09 12:00] VITALS: BP 163/83
--- NOTE | 2020-08-09 13:31 | Neurology Progress Note ---
Interim History Interim History Interim History Ms Nanny Putnam is an 84-year-old, right-handed, black lady, who does have a past history of multiple sclerosis for numerous years, high blood pressure, dyslipidemia, and dementia. She lives at [facility]. On the morning of 08/06/2020 when she got up from a sitting position to the standing position of the commode she felt lightheaded and passed out for a short period of time. When her blood pressure was measured it was low. She was brought to the [facility] emergency room by the paramedics and has since been admitted. When I saw her on 08/07/2020 she felt well. She had no further episodes of lightheadedness or passing out. She however had not been out of bed. She feels very well today. She denies any lightheadedness, dizziness, or any further episodes of loss of consciousness. She continues to be forgetful. She denies any new neurological symptoms. She tells me that she is planning to go home today. Review of Systems Neuro Review of Systems Benign. Objective Physical Exam Last Vital Signs Date Time Temp Pulse Resp B/P (MAP) Pulse Ox O2 Delivery O2 Flow Rate FiO2 08/09/20 12:00 97.9 76 18 163/83 (109) 96 08/09/20 09:00 Room Air Laboratory Tests Test 08/09/20 07:55 White Blood Count 8.1 K/UL (4.8-10.8) Red Blood Count 4.20 M/UL (4.20-5.40) Hemoglobin 12.6 G/DL (12.0-16.0) Hematocrit 37.8 % (37.0-47.0) Mean Corpuscular Volume 90 FL (80-99) Mean Corpuscular Hemoglobin 30.1 PG (27.0-31.0) Mean Corpuscular Hemoglobin Concent 33.4 G/DL (32.0-36.0) Red Cell Distribution Width 13.1 % (11.6-14.8) Platelet Count 216 K/UL (150-450) Mean Platelet Volume 6.3 FL (6.5-10.1) L Neutrophils (%) (Auto) 74.0 % (45.0-75.0) Lymphocytes (%) (Auto) 15.9 % (20.0-45.0) L Monocytes (%) (Auto) 7.3 % (1.0-10.0) Eosinophils (%) (Auto) 2.2 % (0.0-3.0) Basophils (%) (Auto) 0.6 % (0.0-2.0) Sodium Level 138 MMOL/L (136-145) Potassium Level 3.8 MMOL/L (3.5-5.1) Chloride Level 104 MMOL/L (98-107) Carbon Dioxide Level 28 MMOL/L (21-32) Anion Gap 6 mmol/L (5-15) Blood Urea Nitrogen 7 mg/dL (7-18) Creatinine 1.1 MG/DL (0.55-1.30) Estimat Glomerular Filtration Rate 57.7 mL/min (>60) Glucose Level 154 MG/DL (74-106) H Calcium Level 8.2 MG/DL (8.5-10.1) L Phosphorus Level 3.3 MG/DL (2.5-4.9) Magnesium Level 1.9 MG/DL (1.8-2.4) Total Bilirubin 0.6 MG/DL (0.2-1.0) Aspartate Amino Transf (AST/SGOT) 17 U/L (15-37) Alanine Aminotransferase (ALT/SGPT) 12 U/L (12-78) Alkaline Phosphatase 84 U/L (46-116) C-Reactive Protein, Quantitative 4.5 mg/dL (0.00-0.90) H Total Protein 6.2 G/DL (6.4-8.2) L Albumin 3.1 G/DL (3.4-5.0) L Globulin 3.1 g/dL Albumin/Globulin Ratio 1.0 (1.0-2.7) Neurologic Exam Objective PHYSICAL EXAMINATION: GENERAL: She is a well-developed, well-nourished, pleasant, black lady, lying in bed, in no acute distress. HEAD: Normocephalic and atraumatic. NECK: No neck rigidity was observed. EENT: Benign. SPINE: Cervical, thoracic and lumbosacral spine revealed no tenderness or paraspinal muscle spasm and normal range of motion. EXTREMITIES: Benign. NEUROLOGIC EXAMINATION: MENTAL STATUS EXAMINATION: She was awake and alert. She was oriented to self and July. She did not know the date, year or where she was located. She was able to recall 3/3 words immediately but could only remember 2/3 after 1 minute and 3 minutes even on the second trial. She was able to remember presidents Trump through Kemp Alan with hints. Her mathematical skills were minimally impaired. Her visuospatial function was relatively good. SPEECH: No dysarthria was noted. LANGUAGE: He had an anomia for low-frequency words. CRANIAL NERVE EXAMINATION: II: The visual marrero were intact to confrontation testing. III, IV, : External ocular movements were full and pupils 3 mm in diameter equal, round, regular and reactive to light. V: The facial sensations were normal, and the temporales, masseters and pterygoids functioned normally. VII: The facial expressions were normal and no facial asymmetry was seen. VIII: The patient was able to hear well bilaterally and had no nystagmus. IX: The palate moved symmetrically on phonation. X: There was no hoarseness of voice. XI: The sternocleidomastoids and trapezii functioned normally. XII: The tongue was in the midline without any fasciculations or atrophy. MOTOR SYSTEM: The tone was creased in both lower extremities with spasticity. Examination of muscle mass revealed no focal wasting. Examination of power revealed G 5/5 power in both upper extremities. In both lower extremities she had: G 2/4 in the iliopsoas G 5-/5 in the quadriceps G 4/5 in the hamstrings G 4+/5 in the ankles and toes. SENSORY EXAMINATION: Sensory examination was inaccurate because of varying responses. COORDINATION: [id number] was performed well. She was unable to perform [id number]-[id number] testing. REFLEXES: 2+ and bilaterally symmetric at the biceps, triceps, and brachioradialis. 2++ at both knees. 0 at both ankles. The plantar responses were equivocal bilaterally. STANCE: Deferred. GAIT: Deferred. ABNORMAL MOVEMENTS: None Impression/Recommendations Diagnostic Impression DIAGNOSTIC IMPRESSION: 1. Ms Nanny Putnam is an 84-year-old, right-handed, black lady, who does have a past history of multiple sclerosis for numerous years, high blood pressure, dyslipidemia, and dementia. She lives at [facility]. 2. On the morning of 08/06/2020 when she got up from a sitting position to the standing position of the commode she felt lightheaded and passed out for a short period of time. When her blood pressure was measured it was low. She was brought to the [facility] emergency room by the paramedics and has since been admitted. 3. When I saw her on 08/07/2020 she felt well. She had no further episodes of lightheadedness or passing out. She however had not been out of bed. 4. She feels very well today. She denies any lightheadedness, dizziness, or any further episodes of loss of consciousness. She continues to be forgetful. She denies any new neurological symptoms. She tells me that she is planning to go home today. 5. On neurological examination, at this time, she is disoriented to the date, year and name of the hospital. She has significant problems with recent and remote memory. She also has problems with higher cognitive function. She has a spastic paraparesis of significant degree. 6. Laboratory data obtained thus far have revealed a WBC count elevated at 14,600, blood sugar elevated at 131, normal vitamin B12 level folate level TSH and a.m. cortisol. The urinalysis revealed 10-15 white blood cells and 2-4 red blood cells with 2+ leukocyte esterase. 7. Patient history, neurological examination, and laboratory data, most consistent with a syncopal episode most probably related to volume depletion and a mild urinary tract infection. 8. She does have significant cognitive problems which are most probably related to a primary degenerative dementia. 9. She does have a history of multiple sclerosis which in her case has caused a significant paraparesis. It is unclear if she is taking a disease modifying agent for it or not. Recommendations RECOMMENDATIONS: 1. Continue present management. 2. If the patient is on a disease modifying agent for her multiple sclerosis it should be continued. 3. Continue treatment for cognitive dysfunction. 4. Get patient out of bed in chair for all meals to prevent deconditioning. 5. Treatment of UTI as per Dr. Dubois. 6. Mobilize the patient with physical therapy. Madhu Larsen M.D., M.S.P.H. Neurologist & Clinical Neurophysiologist Madhu Larsen MD Aug 09, 2020 13:31
[2020-08-09 16:00] VITALS: BP 156/84
[2020-08-09] MEDS ORDERED: Tubing IV Secondary IV ONE (17:11)
--- NOTE | 2020-08-11 10:34 | Discharge Summary ---
Discharge Summary Discharge Summary _ DATE OF ADMISSION: 08/07/2020 DATE OF DISCHARGE: 08/09/2020 DISCHARGED BY: Dr. Johan Dubois CONSULTANTS: Dr. Madhu Larsen [facility]: Patient is an 84-year-old female with past history of multiple sclerosis. The patient resides at [facility] [place]. The patient presented to emergency room for syncopal episode. Patient was using the bathroom with attendant nearby when she had a witnessed brief syncopal episode. It appeared that this occurred while patient was getting up from seated position. She however regained consciousness quickly. There was no head injury reported by the attendant. The patient was slightly hypotensive when EMS arrived. She was given 250 mL bolus and blood pressure improved. The patient complained of lightheadedness, however denied chest pain, palpitations, shortness of breath, nausea or vomiting. Upon evaluation at ED, vital signs were stable. Patient was positive for orthos tasis. Blood work showed WBC elevated to 15. Hemoglobin 13 and hematocrit 40. Platelet count 229. Troponin was negative. Electrolytes were normal. EKG showed sinus rhythm with normal intervals, no ischemic changes. Chest x-ray did not show any acute findings. Rapid Covid testing was negative. Patient was then admitted for evaluation of syncope. Neurologist was consulted for evaluation of multiple sclerosis. Patient presented with significant cognitive problem which is most probably related to primary degenerative dementia. She has multiple sclerosis which has caused significant paraparesis. Blood culture did not isolate any growth. Urine culture showed growth of mixed gram-positive organisms. She was started empirically on ceftriaxone. She was given IV hydration. There were no further episodes of lightheadedness, dizziness or loss of consciousness. There were no new neurological symptoms. Patient was discharged back to residential. FINAL DIAGNOSES: Syncope Orthostatic hypotension UTI Multiple sclerosis DISPOSITION: Patient was discharged back to SNF. DISCHARGE MEDICATIONS: Refer to Discharge Medication List. I have been assigned to complete a discharge summary on this account, I was not involved with the patient's management.--JM Lopez Jacqueline Robles NP Aug 11, 2020 10:33
== END 2020-08-09 17:12 | DRG 312 ==
LOC: EDBD 23:03 → EMR 23:47 → 2E 08-07 00:07 → EDBEDREQ 08-07 01:02
DX: I95.1 Orthostatic hypotension (principal); N39.0 Urinary tract infection, site not specified; G35 Multiple sclerosis; I10 Essential (primary) hypertension; E78.5 Hyperlipidemia, unspecified; Z88.8 Allergy status to other drugs, medicaments and biological substances; F03.90 Unspecified dementia, unspecified severity, without behavioral disturbance, psychotic disturbance, mood disturbance, and anxiety
CPT/HCPCS: 36415; 71045; 80053; 80061; 81001; 82533; 82607; 82746; 83036; 83735; 83880; 84100; 84443; 84484; 84550; 85025; 86140; 87040; 87081; 87086; 93005; 93882; 96361; 96374; 99285; J2405; J7030; U0002